=== PATIENT | male | born 1950 | race Hispanic/Latino ===

== ENCOUNTER 2019-09-05 09:57 | Inpatient (IN) | payer MEDICARE ==
[2019-09-05] MEDS ORDERED: ASPIRIN 325 MG TAB PO ONE (10:23)
[2019-09-05] MEDS ORDERED: NITROGLYCERIN 0.4 MG TAB SUBL SL ONE (10:23)
[2019-09-05] MEDS ORDERED: ALBUTEROL 2.5 MG/3 ML NEBU IH ONE ×2 (10:26→23:05)
[2019-09-05] MEDS ORDERED: IPRATROPIUM 0.02% NEBU 2.5 ML IH ONE (10:26)
[2019-09-05 11:10] LABS: Basophils # (Auto) 0.1 K/mm3 (0.0-0.1); Basophils % (Auto) 0.8 % (0.0-1.8); Eosinophils # (Auto) 0.4 K/mm3 (0.0-0.4); Eosinophils % (Auto) 5.8 % (0.0-4.3); Hematocrit 49.9 % (35.5-45.6); Lymphocytes # (Auto) 0.8 K/mm3 (1.2-5.4); Lymphocytes % (Auto) 10.8 % (13.4-35.0); Mean Corpuscular HGB Conc 34 % (32-34); Mean Corpuscular Volume 95 fl (84-94); Monocytes # (Auto) 0.5 K/mm3 (0.0-0.8); Monocytes % (Auto) 6.5 % (0.0-7.3); Platelet Count 142 K/mm3 (140-440); Red Blood Count 5.26 M/mm3 (3.65-5.03); Red Cell Distribution Width 13.3 % (13.2-15.2)
[2019-09-05 11:34] LABS: BUN/Creatinine Ratio 7; Blood Urea Nitrogen 7 mg/dL (9-20); Calcium 9.1 mg/dL (8.4-10.2); Hemolysis Index 11
[2019-09-05] MEDS ORDERED: FUROSEMIDE 40 MG/4 ML INJ IV ONE (11:41)
[2019-09-05 11:52] LABS: INR 1.07 (0.87-1.13); Partial Thromboplastin Time 31.9 Sec. (24.2-36.6)
[2019-09-05 12:06] LABS: Chol/HDL Ratio 4.67 %; HDL Cholesterol 37 mg/dL (40-59); LDL Cholesterol,Direct 128 mg/dL (50-130)
--- NOTE | 2019-09-05 12:25 | XRay Report ---
. CHEST 2 VIEWS INDICATION / CLINICAL INFORMATION: chest pain. COMPARISON: None available. FINDINGS: SUPPORT DEVICES: None. HEART / MEDIASTINUM: No significant abnormality. LUNGS / PLEURA: There are increased basilar interstitial markings and small effusions. Appearance sug gests early heart failure. No focal alveolar consolidation. No pneumothorax. ADDITIONAL FINDINGS: No significant additional findings. IMPRESSION: 1. Possible early heart failure. Signer Name: Tj Main MD Signed: 09/05/2019 12:21 PM Workstation Name: [id number]
[2019-09-05] MEDS ORDERED: ACETAMINOPHEN 325 MG TAB PO PRN (12:38)
[2019-09-05] MEDS ORDERED: ONDANSETRON 4 MG/2 ML INJ IV PRN (12:38)
[2019-09-05] MEDS ORDERED: HYDROXYZINE HCL 50 MG PO PRN (12:42)
--- NOTE | 2019-09-05 12:42 | Emergency Department Report ---
ED Chest Pain HPI - General Chief Complaint: Chest Pain Stated Complaint: CHEST PAIN Time Seen by Provider: 09/05/19 10:20 Source: patient, EMS Mode of arrival: Stretcher Limitations: No Limitations - History of Present Illness Initial Comments: Patient is a 69-year-old male with no known past medical history per patient who states he has been having chest pain since last night. Patient states that pain as a pressure-like sensation in the center chest. Associated with shortness of breath. Patient states pain is worse with exertion and better with rest. Patient denies fevers chills. He has a mild nonproductive cough. Severity scale (0 -10): 7 - Related Data Home Medications Medication Instructions Recorded Confirmed Last Taken Gabapentin [Neurontin] 400 mg PO QID 09/05/19 09/05/19 Unknown Hydroxyzine HCl [hydrOXYzine] 50 mg PO QID PRN 09/05/19 09/05/19 Unknown tiZANidine [Zanaflex 4mg TAB] 8 mg PO Q8H 09/05/19 09/05/19 Unknown Allergies Allergy/AdvReac Type Severity Reaction Status Date / Time acetaminophen [From Percocet] AdvReac Vomiting Verified 09/05/19 10:18 oxycodone [From Percocet] AdvReac Vomiting Verified 09/05/19 10:18 Heart Score - HEART Score History: Highly suspicious EKG: Non-specific Age: > 65 Risk factors: No known risk factors Troponin: 1-3x normal limit HEART Score: 6 ED Review of Systems ROS: Stated complaint: CHEST PAIN Other details as noted in HPI Comment: All other systems reviewed and negative ED Past Medical Hx - Past Medical History Previous Medical History?: No - Surgical History Past Surgical History?: Yes Additional Surgical History: neck surgery - Social History Smoking Status: Current Every Day Smoker - Medications Home Medications: Home Medications Medication Instructions Recorded Confirmed Last Taken Type Gabapentin [Neurontin] 400 mg PO QID 09/05/19 09/05/19 Unknown History Hydroxyzine HCl [hydrOXYzine] 50 mg PO QID PRN 09/05/19 09/05/19 Unknown History tiZANidine [Zanaflex 4mg TAB] 8 mg PO Q8H 09/05/19 09/05/19 Unknown History ED Physical Exam - General Limitations: No Limitations General appearance: alert, in no apparent distress - Head Head exam: Present: atraumatic, normocephalic - Eye Eye exam: Present: normal appearance, PERRL, EOMI - ENT ENT exam: Present: mucous membranes moist - Neck Neck exam: Present: normal inspection - Respiratory Respiratory exam: Present: normal lung sounds bilaterally, wheezes. Absent: respiratory distress, rales, rhonchi - Cardiovascular Cardiovascular Exam: Present: regular rate, normal rhythm, normal heart sounds. Absent: systolic murmur, diastolic murmur, rubs, gallop - GI/Abdominal GI/Abdominal exam: Present: soft, normal bowel sounds. Absent: distended, tenderness, guarding, rebound - Rectal Rectal exam: Present: deferred - Extremities Exam Extremities exam: Present: normal inspection - Back Exam Back exam: Present: normal inspection - Neurological Exam Neurological exam: Present: alert, oriented X3 - Psychiatric Psychiatric exam: Present: normal affect, normal mood - Skin Skin exam: Present: warm, dry, intact, normal color. Absent: rash ED Course Vital Signs 09/05/19 10:48 Temperature 98.7 F Pulse Rate 90 Respiratory 22 Rate Blood Pressure 128/87 [Left] O2 Sat by Pulse 93 Oximetry ED Medical Decision Making - Lab Data Result diagrams: 09/05/19 10:52 09/05/19 10:52 Lab Results 09/05/19 09/05/19 09/05/19 Range/Units 10:52 10:52 10:52 WBC 7.6 (4.5-11.0) K/mm3 RBC 5.26 H (3.65-5.03) M/mm3 Hgb 17.0 H (11.8-15.2) gm/dl Hct 49.9 H (35.5-45.6) % MCV 95 H (84-94) fl MCH 32 (28-32) pg MCHC 34 (32-34) % RDW 13.3 (13.2-15.2) % Plt Count 142 (140-440) K/mm3 Lymph % (Auto) 10.8 L (13.4-35.0) % [place] % (Auto) 6.5 (0.0-7.3) % Eos % (Auto) 5.8 H (0.0-4.3) % Baso % (Auto) 0.8 (0.0-1.8) % Lymph # 0.8 L (1.2-5.4) K/mm3 [place] # 0.5 (0.0-0.8) K/mm3 Eos # 0.4 (0.0-0.4) K/mm3 Baso # 0.1 (0.0-0.1) K/mm3 Seg Neutrophils % 76.1 H (40.0-70.0) % Seg Neutrophils # 5.8 (1.8-7.7) K/mm3 PT 13.8 (12.2-14.9) Sec. INR 1.07 (0.87-1.13) APTT 31.9 (24.2-36.6) Sec. D-Dimer 1584.56 H (0-234) ng/mlDDU Sodium 142 (137-145) mmol/L Potassium 3.6 (3.6-5.0) mmol/L Chloride 105.9 (98-107) mmol/L Carbon Dioxide 21 L (22-30) mmol/L Anion Gap 19 mmol/L BUN 7 L (9-20) mg/dL Creatinine 1.0 (0.8-1.5) mg/dL Estimated GFR > 60 ml/min BUN/Creatinine Ratio 7 % Glucose 160 H (75-100) mg/dL Calcium 9.1 (8.4-10.2) mg/dL Troponin T 0.341 H* (0.00-0.029) ng/mL NT-Pro-B Natriuret Pep (0-900) pg/mL Triglycerides 95 (2-149) mg/dL Cholesterol 173 (50-199) mg/dL LDL Cholesterol Direct 128 (50-130) mg/dL HDL Cholesterol 37 L (40-59) mg/dL Cholesterol/HDL Ratio 4.67 % 09/05/19 Range/Units 10:52 WBC (4.5-11.0) K/mm3 RBC (3.65-5.03) M/mm3 Hgb (11.8-15.2) gm/dl Hct (35.5-45.6) % MCV (84-94) fl MCH (28-32) pg MCHC (32-34) % RDW (13.2-15.2) % Plt Count (140-440) K/mm3 Lymph % (Auto) (13.4-35.0) % [place] % (Auto) (0.0-7.3) % Eos % (Auto) (0.0-4.3) % Baso % (Auto) (0.0-1.8) % Lymph # (1.2-5.4) K/mm3 [place] # (0.0-0.8) K/mm3 Eos # (0.0-0.4) K/mm3 Baso # (0.0-0.1) K/mm3 Seg Neutrophils % (40.0-70.0) % Seg Neutrophils # (1.8-7.7) K/mm3 PT (12.2-14.9) Sec. INR (0.87-1.13) APTT (24.2-36.6) Sec. D-Dimer (0-234) ng/mlDDU Sodium (137-145) mmol/L Potassium (3.6-5.0) mmol/L Chloride (98-107) mmol/L Carbon Dioxide (22-30) mmol/L Anion Gap mmol/L BUN (9-20) mg/dL Creatinine (0.8-1.5) mg/dL Estimated GFR ml/min BUN/Creatinine Ratio % Glucose (75-100) mg/dL Calcium (8.4-10.2) mg/dL Troponin T (0.00-0.029) ng/mL NT-Pro-B Natriuret Pep 3804 H (0-900) pg/mL Triglycerides (2-149) mg/dL Cholesterol (50-199) mg/dL LDL Cholesterol Direct (50-130) mg/dL HDL Cholesterol (40-59) mg/dL Cholesterol/HDL Ratio % - EKG Data -: EKG Interpreted by La - EKG Data 09/05/19 12:40 EKG shows sinus rhythm a rate of 97. Axes normal intervals normal. Patient with Q waves in the septal leads. No ST segment elevation or depressions. There are occasional PVCs. - Radiology Data Chest x-ray shows cardiomegaly with mild pulmonary vascular congestion consistent with early congestive heart failure - Medical Decision Making Patient 69-year-old male who is presenting with chest pain with exertion and shortness of breath. Patient presented with a mild wheezes started on a neb treatment however patient's BNP was elevated there appears to be pulmonary vascular congestion on chest x-ray more consistent with a CHF exacerbation. No wheezing did improve with the neb treatment. Lasix was added. Patient to be admitted to the hospitalist service. Patient will be started on a heparin drip. Critical Care Time: Yes (30) Critical care attestation.: If time is entered above; I have spent that time in minutes in the direct care of this critically ill patient, excluding procedure time. ED Disposition Clinical Impression: NSTEMI (non-ST elevated myocardial infarction), Respiratory distress Congestive heart failure Qualifiers: Heart failure type: unspecified Heart failure chronicity: acute Qualified Code(s): I50.9 - Heart failure, unspecified Disposition: OP ADMIT IP TO THIS HOSP Is pt being admited?: Yes Does the pt Need Aspirin: No Condition: Stable Time of Disposition: 12:43
[2019-09-05] MEDS ORDERED: ASPIRIN 81 MG TAB CHEW PO STA (12:43)
--- NOTE | 2019-09-05 15:10 | Consultation ---
History of Present Illness Consult date: 09/05/19 Consult reason: chest pain, elevated troponin History of present illness: This is a 69-year old male that has smoke tobacco but has no prior medical history and does not take any medications. He presented with chest pain, intermittent for several days. Patient denies unusual shortness of breath, diaphoresis, dizziness and palpitations.There is no lower extremity edema and there was no syncope. Patient reports chest pain with no relieving factors. A chest x-ray reports increase basilar interstitial markings suggestive of mild heart failure. Initial labs shows an elevated d-dimer and a proBNP of 3804. Troponin of 0.341. His ECG is sinus rhythm with PACs and occasional PVCs. Patient was admitted by the hospitalist team is a planned for a stress thallium test and echocardiogram. Cardiology consultation has been requested. Past History Past Medical History: No medical history Medications and Allergies Allergies Allergy/AdvReac Type Severity Reaction Status Date / Time acetaminophen [From Percocet] AdvReac Vomiting Verified 09/05/19 10:18 oxycodone [From Percocet] AdvReac Vomiting Verified 09/05/19 10:18 Home Medications Medication Instructions Recorded Confirmed Last Taken Type Gabapentin [Neurontin] 400 mg PO QID 09/05/19 09/05/19 Unknown History Hydroxyzine HCl [hydrOXYzine] 50 mg PO QID PRN 09/05/19 09/05/19 Unknown History tiZANidine [Zanaflex 4mg TAB] 8 mg PO Q8H 09/05/19 09/05/19 Unknown History Active Meds: Active Medications Acetaminophen (Tylenol) 650 mg PO Q4H PRN PRN Reason: Pain MILD(1-3)/Fever >100.5/LUJAN Enoxaparin Sodium (Enoxaparin) 80 mg 1 mg/kg (80 mg) SUB-Q Q12HR WESTLEY Gabapentin (Gabapentin) 400 mg PO QID WEST[place] Hydroxyzine HCl (Atarax) 50 mg PO Q6H PRN PRN Reason: Anxiety Ondansetron HCl (Zofran) 4 mg IV Q8H PRN PRN Reason: Nausea And Vomiting Sodium Chloride (Sodium Chloride Flush Syringe 10 Ml) 10 ml IV BID [place]STLEY Sodium Chloride (Sodium Chloride Flush Syringe 10 Ml) 10 ml IV PRN PRN PRN Reason: LINE FLUSH Sodium Chloride (Sodium Chloride Flush Syringe 10 Ml) 10 ml IV PRN PRN PRN Reason: LINE FLUSH Physical Examination Vital Signs Temp Pulse Resp BP Pulse Ox 98.7 F 90 22 128/87 93 09/05/19 10:48 09/05/19 10:48 09/05/19 10:48 09/05/19 10:48 09/05/19 10:48 General appearance: no acute distress HEENT: Positive: PERRL Neck: Positive: trachea midline Cardiac: Positive: Reg Rate and Rhythm Lungs: Positive: Normal Breath Sounds Neuro: Positive: Grossly Intact Extremities: Absent: edema Results 09/05/19 10:52 09/05/19 10:52 Coagulation 09/05/19 Range/Units 10:52 PT 13.8 (12.2-14.9) Sec. INR 1.07 (0.87-1.13) APTT 31.9 (24.2-36.6) Sec. Lipids 09/05/19 Range/Units 10:52 Triglycerides 95 (2-149) mg/dL Cholesterol 173 (50-199) mg/dL HDL Cholesterol 37 L (40-59) mg/dL Cholesterol/HDL Ratio 4.67 % CBC 09/05/19 Range/Units 10:52 WBC 7.6 (4.5-11.0) K/mm3 RBC 5.26 H (3.65-5.03) M/mm3 Hgb 17.0 H (11.8-15.2) gm/dl Hct 49.9 H (35.5-45.6) % Plt Count 142 (140-440) K/mm3 Lymph # 0.8 L (1.2-5.4) K/mm3 [place] # 0.5 (0.0-0.8) K/mm3 Eos # 0.4 (0.0-0.4) K/mm3 Baso # 0.1 (0.0-0.1) K/mm3 Comprehensive Metabolic Panel 09/05/19 Range/Units 10:52 Sodium 142 (137-145) mmol/L Potassium 3.6 (3.6-5.0) mmol/L Chloride 105.9 (98-107) mmol/L Carbon Dioxide 21 L (22-30) mmol/L BUN 7 L (9-20) mg/dL Creatinine 1.0 (0.8-1.5) mg/dL Glucose 160 H (75-100) mg/dL Calcium 9.1 (8.4-10.2) mg/dL Assessment and Plan - Patient Problems (1) NSTEMI (non-ST elevated myocardial infarction) Current Visit: Yes Status: Acute
--- NOTE | 2019-09-05 15:44 | History and Physical Report ---
History of Present Illness Date of admission: 09/05/19 12:38 Chief complaint: My chest hurts History of present illness: 69 YO Male with Nicotine Dependence presents to ED for evaluation. Pt states that he has experienced pain in his chest over the past 5 days with worsening symptoms over the past 2 days. Pt states that pain is 7/10, substernal, intermittent with increasing frequency over the past 2 days, radiates to the left arm, associated with shortness of breath. Pt acknowledges decreased exercise tolerance, dypsnea on exertion, dypsnea at rest. EMS notified, and upon arrival the patient was found to be in distress. Pt transported to [facility]. Pt seen and evaluated in ED and found to have NSTEMI as well as CHF Decompensation. Pt admitted to telemetry. Cardiology consulted in ED. Pt initiated on NSTEMI protocol, as well as therapeutic anticoagulation. Pt denies fever, chills, palpi tations, NVD, Trauma, Hemoptysis, unilateral leg swelling, calf pain, syncope, productive cough or recent ill contacts. No prior admission for review. No medication listed for reconciliation at time of admission. Past History Past Medical History: No medical history Past Surgical History: Other (neck surgery) Social history: , lives with family, smoking Family history: no significant family history (reviewed) Medications and Allergies Allergies Allergy/AdvReac Type Severity Reaction Status Date / Time acetaminophen [From Percocet] AdvReac Vomiting Verified 09/05/19 10:18 oxycodone [From Percocet] AdvReac Vomiting Verified 09/05/19 10:18 Home Medications Medication Instructions Recorded Confirmed Last Taken Type Gabapentin [Neurontin] 400 mg PO QID 09/05/19 09/05/19 Unknown History Hydroxyzine HCl [hydrOXYzine] 50 mg PO QID PRN 09/05/19 09/05/19 Unknown History tiZANidine [Zanaflex 4mg TAB] 8 mg PO Q8H 09/05/19 09/05/19 Unknown History Active Meds: Active Medications Acetaminophen (Tylenol) 650 mg PO Q4H PRN PRN Reason: Pain MILD(1-3)/Fever >100.5/LUJAN Enoxaparin Sodium (Enoxaparin) 80 mg 1 mg/kg (80 mg) SUB-Q Q12HR [place] Gabapentin (Gabapentin) 400 mg PO QID [place] Hydroxyzine HCl (Atarax) 50 mg PO Q6H PRN PRN Reason: Anxiety Ondansetron HCl (Zofran) 4 mg IV Q8H PRN PRN Reason: Nausea And Vomiting Sodium Chloride (Sodium Chloride Flush Syringe 10 Ml) 10 ml IV BID [place]ST[place] Sodium Chloride (Sodium Chloride Flush Syringe 10 Ml) 10 ml IV PRN PRN PRN Reason: LINE FLUSH Sodium Chloride (Sodium Chloride Flush Syringe 10 Ml) 10 ml IV PRN PRN PRN Reason: LINE FLUSH Review of Systems Constitutional: no weight loss, no weight gain, no fever, no chills Ears, nose, mouth and throat: no ear pain, no ear discharge, no tinnitis, no decreased hearing Cardiovascular: chest pain, shortness of breath, dyspnea on exertion, decreased exercise tolerance, no palpitations, no syncope, no lightheadedness Respiratory: no cough, no cough with sputum, no excessive sputum, no hemoptysis Gastrointestinal: no nausea, no vomiting, no diarrhea, no change in bowel habits Genitourinary Male: no hematuria, no flank pain, no discharge, no urinary frequency, no urinary hesitancy Rectal: no pain, no incontinence, no bleeding Musculoskeletal: no neck stiffness, no neck pain, no shooting arm pain, no arm numbness/tingling, no low back pain, no leg numbness/tingling Integumentary: no rash, no pruritis, no redness, no sores, no wounds Neurological: no paralysis, no weakness, no parathesias, no numbness, no tingling, no seizures Psychiatric: no anxiety, no memory loss, no change in sleep habits, no sleep disturbances, no insomnia, no hypersomnia, no change in libido, no suicidal ideation Endocrine: no cold intolerance, no heat intolerance, no polyphagia, no excessive thirst, no polydipsia, no polyuria, no nocturia, no flushing, no weight change Hematologic/Lymphatic: no easy bruising, no easy bleeding, no lymphadenopathy, no lymphedema Allergic/Immunologic: no urticaria, no allergic rhinitis, no wheezing, no persistent infections, no anaphylaxis, no angioedema Exam - Constitutional Vitals: Temp Pulse Resp BP Pulse Ox 98.7 F 103 H 17 136/82 88 09/05/19 10:48 09/05/19 13:00 09/05/19 13:00 09/05/19 13:00 09/05/19 13:00 General appearance: Present: mild distress, well-nourished - EENT Eyes: Present: PERRL ENT: hearing intact, clear oral mucosa - Neck Neck: Present: supple, normal ROM - Respiratory Respiratory effort: normal Respiratory: bilateral: CTA - Cardiovascular Heart Sounds: Present: S1 & S2. Absent: rub, click - Extremities Extremities: pulses symmetrical, No edema Peripheral Pulses: within normal limits - Abdominal General gastrointestinal: Present: soft, non-tender, non-distended, normal bowel sounds Male genitourinary: Present: normal - Integumentary Integumentary: Present: clear, warm, dry - Musculoskeletal Musculoskeletal: strength equal bilaterally - Psychiatric Psychiatric: appropriate mood/affect, intact judgment & insight - Neurologic Neurologic: CNII-XII intact, moves all extremities Results - Labs CBC & Chem 7: 09/05/19 10:52 09/05/19 10:52 Labs: Abnormal lab results 09/05/19 09/05/19 09/05/19 Range/Units 10:52 10:52 10:52 RBC 5.26 H (3.65-5.03) M/mm3 Hgb 17.0 H (11.8-15.2) gm/dl Hct 49.9 H (35.5-45.6) % MCV 95 H (84-94) fl Lymph % (Auto) 10.8 L (13.4-35.0) % Eos % (Auto) 5.8 H (0.0-4.3) % Lymph # 0.8 L (1.2-5.4) K/mm3 Seg Neutrophils % 76.1 H (40.0-70.0) % D-Dimer 1584.56 H (0-234) ng/mlDDU Carbon Dioxide 21 L (22-30) mmol/L BUN 7 L (9-20) mg/dL Glucose 160 H (75-100) mg/dL Troponin T 0.341 H* (0.00-0.029) ng/mL NT-Pro-B Natriuret Pep (0-900) pg/mL HDL Cholesterol 37 L (40-59) mg/dL 09/05/19 09/05/19 09/05/19 Range/Units 10:52 13:50 14:32 RBC (3.65-5.03) M/mm3 Hgb (11.8-15.2) gm/dl Hct (35.5-45.6) % MCV (84-94) fl Lymph % (Auto) (13.4-35.0) % Eos % (Auto) (0.0-4.3) % Lymph # (1.2-5.4) K/mm3 Seg Neutrophils % (40.0-70.0) % D-Dimer (0-234) ng/mlDDU Carbon Dioxide (22-30) mmol/L BUN (9-20) mg/dL Glucose (75-100) mg/dL Troponin T 0.314 H* 0.305 H* (0.00-0.029) ng/mL NT-Pro-B Natriuret Pep 3804 H (0-900) pg/mL HDL Cholesterol (40-59) mg/dL Assessment and Plan - Patient Problems (1) NSTEMI (non-ST elevated myocardial infarction) Current Visit: Yes Status: Acute Plan to address problem: Admit to telemetry, cardiology consulted in ED, Therapeutic anticoagulation, serial cardiac enzymes, pulse oximetry, stress test, echo, further testing as per cardiology team. (2) Congestive heart failure Current Visit: Yes Status: Acute Qualifiers: Heart failure type: combined systolic and diastolic Heart failure chronicity: acute Qualified Code(s): I50.41 - Acute combined systolic (congestive) and diastolic (congestive) heart failure Plan to address problem: Admit to telemetry, Strict I/O, BNP, thyroid panel, monitor uop q shift, chest x ray, pulse oximetry, afterload reduction, echo, cardiology consulted in ED. (3) Nicotine dependence Current Visit: Yes Status: Acute Qualifiers: Substance use status: in withdrawal Plan to address problem: Smoking cessation counseling, supportive care. +15 min (4) DVT prophylaxis Current Visit: Yes Status: Acute Plan to address problem: SCD to BLE while in bed, therapeutic anticoagulation
[2019-09-05] MEDS: FUROSEMIDE 40 MG/4 ML INJ IV SCH (17:15)
[2019-09-05] MEDS: GABAPENTIN 400 MG CAP PO SCH ×4 (17:16→22:02)
[2019-09-05] MEDS: NITROGLYCERIN 2% OINT 1 GM TP SCH (17:16)
[2019-09-05] MEDS ORDERED: HYDROcodone/ACETAMINOPHEN 7.5-325MG TAB PO PRN (17:29)
[2019-09-05] MEDS ORDERED: ENOXAPARIN 100 MG/1 ML INJ SUB-Q SCH (22:00)
[2019-09-05] MEDS: hydrOXYzine HCL 25 MG TAB PO PRN (22:03)
[2019-09-06] MEDS: NITROGLYCERIN 2% OINT 1 GM TP SCH ×3 (07:40→18:28)
[2019-09-06 07:57] LABS: Basophils # (Auto) 0.1 K/mm3 (0.0-0.1); Eosinophils # (Auto) 0.3 K/mm3 (0.0-0.4); Eosinophils % (Auto) 3.6 % (0.0-4.3); Hemoglobin 16.9 gm/dl (11.8-15.2); Lymphocytes # (Auto) 0.8 K/mm3 (1.2-5.4); Lymphocytes % (Auto) 9.7 % (13.4-35.0); Mean Corpuscular HGB Conc 34 % (32-34); Mean Corpuscular Volume 95 fl (84-94); Monocytes # (Auto) 0.7 K/mm3 (0.0-0.8); Monocytes % (Auto) 8.3 % (0.0-7.3); Platelet Count 141 K/mm3 (140-440); Red Blood Count 5.27 M/mm3 (3.65-5.03); Red Cell Distribution Width 13.1 % (13.2-15.2)
[2019-09-06 08:26] LABS: Alanine Aminotransferase 12 units/L (7-56); Albumin 3.9 g/dL (3.9-5); BUN/Creatinine Ratio 9; Blood Urea Nitrogen 8 mg/dL (9-20); Hemolysis Index 31
[2019-09-06] MEDS ORDERED: ENOXAPARIN 80 MG/0.8 ML INJ SUB-Q SCH (10:00)
[2019-09-06] MEDS ORDERED: POTASSIUM CHLORIDE ER 20 MEQ TAB PO SCH (10:00)
--- NOTE | 2019-09-06 10:52 | Progress Note ---
<BRIAN HOOK - Last Filed: 09/06/19 10:47> Subjective Date of service: 09/06/19 Interval history: NSTEMI Congestive heart failure Chronic tobacco abuse Recommendations: Advised smoking cessation. Medical therapy to include diuretics, nitrates, aspirin, beta blockers and statin therapy. Echocardiogram for left ventricular function assessment. We will proceed with diagnostic angiography after heart failure is treated. Objective Vital Signs Temp Pulse Pulse Resp Resp Resp BP 09/06/19 07:56 98.7 F 18 136/95 09/06/19 03:23 98.1 F 100 H 18 140/76 09/06/19 03:00 20 09/05/19 23:39 62 18 09/05/19 22:53 98.2 F 99 H 18 122/86 09/05/19 22:45 98 H 09/05/19 19:19 98.4 F 76 18 145/91 09/05/19 14:38 98.1 F 95 H 18 139/88 09/05/19 13:50 99 H 25 H 137/79 09/05/19 13:40 117 H 26 H 138/76 09/05/19 13:30 107 H 24 143/79 09/05/19 13:20 110 H 14 143/79 09/05/19 13:00 103 H 17 136/82 09/05/19 12:30 100 H 21 144/91 09/05/19 12:10 131/66 09/05/19 11:30 95 H 14 143/77 09/05/19 11:00 92 H 19 128/74 09/05/19 10:48 98.7 F 90 22 BP Pulse Ox 09/06/19 07:56 09/06/19 03:23 94 09/06/19 03:00 09/05/19 23:39 09/05/19 22:53 93 09/05/19 22:45 09/05/19 19:19 94 09/05/19 14:38 96 09/05/19 13:50 95 09/05/19 13:40 84 09/05/19 13:30 90 09/05/19 13:20 88 09/05/19 13:00 88 09/05/19 12:30 91 09/05/19 12:10 90 09/05/19 11:30 97 09/05/19 11:00 94 09/05/19 10:48 128/87 93 - Physical Examination HEENT: Positive: PERRL Neck: Positive: trachea midline Neuro: Positive: Grossly Intact Extremities: Absent: edema - Labs and Meds Cardiac Enzymes 09/06/19 Range/Units 07:05 AST 39 (5-40) units/L Coagulation 09/05/19 Range/Units 10:52 PT 13.8 (12.2-14.9) Sec. INR 1.07 (0.87-1.13) APTT 31.9 (24.2-36.6) Sec. Lipids 09/05/19 Range/Units 10:52 Triglycerides 95 (2-149) mg/dL Cholesterol 173 (50-199) mg/dL HDL Cholesterol 37 L (40-59) mg/dL Cholesterol/HDL Ratio 4.67 % CBC 09/05/19 09/06/19 Range/Units 10:52 07:05 WBC 7.6 8.2 (4.5-11.0) K/mm3 RBC 5.26 H 5.27 H (3.65-5.03) M/mm3 Hgb 17.0 H 16.9 H (11.8-15.2) gm/dl Hct 49.9 H 50.0 H (35.5-45.6) % Plt Count 142 141 (140-440) K/mm3 Lymph # 0.8 L 0.8 L (1.2-5.4) K/mm3 [place] # 0.5 0.7 (0.0-0.8) K/mm3 Eos # 0.4 0.3 (0.0-0.4) K/mm3 Baso # 0.1 0.1 (0.0-0.1) K/mm3 Comprehensive Metabolic Panel 09/05/19 09/06/19 Range/Units 10:52 07:05 Sodium 142 143 (137-145) mmol/L Potassium 3.6 3.6 (3.6-5.0) mmol/L Chloride 105.9 104.0 (98-107) mmol/L Carbon Dioxide 21 L 22 (22-30) mmol/L BUN 7 L 8 L (9-20) mg/dL Creatinine 1.0 0.9 (0.8-1.5) mg/dL Glucose 160 H 120 H (75-100) mg/dL Calcium 9.1 9.0 (8.4-10.2) mg/dL AST 39 (5-40) units/L ALT 12 (7-56) units/L Alkaline Phosphatase 81 (35-129) units/L Total Protein 6.9 (6.3-8.2) g/dL Albumin 3.9 (3.9-5) g/dL <ALICIA VIDAL - Last Filed: 09/06/19 12:06> Assessment and Plan As seen and evaluated the patient and agree with the assessment and plan. The patient presented to the hospital with non-ST elevation myocardial infarction, chest pain, and congestive heart failure. At this time continue medical therapy with beta flores, aspirin, statin, and THERON inhibitor. Plan for left heart catheterization tomorrow. Objective Vital Signs Temp Pulse Pulse Resp Resp Resp BP 09/06/19 07:56 98.7 F 18 136/95 09/06/19 03:23 98.1 F 100 H 18 140/76 09/06/19 03:00 20 09/05/19 23:39 62 18 09/05/19 22:53 98.2 F 99 H 18 122/86 09/05/19 22:45 98 H 09/05/19 19:19 98.4 F 76 18 145/91 09/05/19 14:38 98.1 F 95 H 18 139/88 09/05/19 13:50 99 H 25 H 137/79 09/05/19 13:40 117 H 26 H 138/76 09/05/19 13:30 107 H 24 143/79 09/05/19 13:20 110 H 14 143/79 09/05/19 13:00 103 H 17 136/82 09/05/19 12:30 100 H 21 144/91 09/05/19 12:10 131/66 Pulse Ox 09/06/19 07:56 09/06/19 03:23 94 09/06/19 03:00 09/05/19 23:39 09/05/19 22:53 93 09/05/19 22:45 09/05/19 19:19 94 09/05/19 14:38 96 09/05/19 13:50 95 09/05/19 13:40 84 09/05/19 13:30 90 09/05/19 13:20 88 09/05/19 13:00 88 09/05/19 12:30 91 09/05/19 12:10 90 - Labs and Meds Cardiac Enzymes 09/06/19 Range/Units 07:05 AST 39 (5-40) units/L Lipids 09/05/19 Range/Units 10:52 Triglycerides 95 (2-149) mg/dL Cholesterol 173 (50-199) mg/dL HDL Cholesterol 37 L (40-59) mg/dL Cholesterol/HDL Ratio 4.67 % CBC 09/06/19 Range/Units 07:05 WBC 8.2 (4.5-11.0) K/mm3 RBC 5.27 H (3.65-5.03) M/mm3 Hgb 16.9 H (11.8-15.2) gm/dl Hct 50.0 H (35.5-45.6) % Plt Count 141 (140-440) K/mm3 Lymph # 0.8 L (1.2-5.4) K/mm3 [place] # 0.7 (0.0-0.8) K/mm3 Eos # 0.3 (0.0-0.4) K/mm3 Baso # 0.1 (0.0-0.1) K/mm3 Comprehensive Metabolic Panel 09/06/19 Range/Units 07:05 Sodium 143 (137-145) mmol/L Potassium 3.6 (3.6-5.0) mmol/L Chloride 104.0 (98-107) mmol/L Carbon Dioxide 22 (22-30) mmol/L BUN 8 L (9-20) mg/dL Creatinine 0.9 (0.8-1.5) mg/dL Glucose 120 H (75-100) mg/dL Calcium 9.0 (8.4-10.2) mg/dL AST 39 (5-40) units/L ALT 12 (7-56) units/L Alkaline Phosphatase 81 (35-129) units/L Total Protein 6.9 (6.3-8.2) g/dL Albumin 3.9 (3.9-5) g/dL
[2019-09-06] MEDS ORDERED: HEPARIN/ 0.45% NACL DRIP 25,000 UNIT/500 ML BAG IV SCH (12:00)
--- NOTE | 2019-09-06 12:20 | Progress Note ---
Assessment and Plan Assessment and plan: 69-year-old manWith no previous medical history who presents to the hospital with chest pain. Which was associated with shortness of breath, increased abdominal girth, and orthopnea NSTEMI elevated d dimer, and peak trop 0.5, need to r/o PE, obtain CTA and LE duplex need to treat CHF and reduce fluid overload before cath -Currently on heparin drip, management per cardiology. acute systolic CHF EF 25% optimize meds, cont diuretics for cath when euvolemic, Tobacco abuse/dependence Smoking cessation counseling performed for 10 minutes, nicotine patches when necessary Polycythemia Most likely due to tobacco abuse, hematology consult DVT prophylaxis; patient is fully anticoagulated at the moment. History Interval history: Review of systems Constitutional: No fevers, no malaise, no joint pains CVS: Cp has now resolved, c/o orthopnea GI: No abdominal pain, no diarrhea, no vomiting, no constipation Respiratory: no wheezing, no coughing Hospitalist Physical - Physical exam Narrative exam: General.: Appears well, no distress, nontoxic HEENT: Moist mucous membranes, extraocular muscles intact, no lymphadenopathy Neck: supple Cardiac: S1-S2 heard Lungs: Bibasilar crackles Abdomen: soft , nontender, mildy distended, bowel sounds positive Extremities: no edema clubbing or cyanosis Skin: no rash or lesions Neurologic: no gross focal deficits Psych: calm, and cooperative - Constitutional Vitals: Temp Pulse Resp BP Pulse Ox 98.8 F 69 17 122/89 73 L 09/06/19 11:29 09/06/19 11:29 09/06/19 11:29 09/06/19 11:29 09/06/19 11:29 General appearance: Present: mild distress, well-nourished Results - Labs CBC & Chem 7: 09/06/19 13:51 09/06/19 07:05 Labs: Laboratory Last Values WBC 8.2 K/mm3 (4.5-11.0) 09/06/19 07:05 RBC 5.27 M/mm3 (3.65-5.03) H 09/06/19 07:05 Hgb 16.9 gm/dl (11.8-15.2) H 09/06/19 07:05 Hct 50.0 % (35.5-45.6) H 09/06/19 07:05 MCV 95 fl (84-94) H 09/06/19 07:05 MCH 32 pg (28-32) 09/06/19 07:05 MCHC 34 % (32-34) 09/06/19 07:05 RDW 13.1 % (13.2-15.2) L 09/06/19 07:05 Plt Count 141 K/mm3 (140-440) 09/06/19 07:05 Lymph % (Auto) 9.7 % (13.4-35.0) L 09/06/19 07:05 [place] % (Auto) 8.3 % (0.0-7.3) H 09/06/19 07:05 Eos % (Auto) 3.6 % (0.0-4.3) 09/06/19 07:05 Baso % (Auto) 1.0 % (0.0-1.8) 09/06/19 07:05 Lymph # 0.8 K/mm3 (1.2-5.4) L 09/06/19 07:05 [place] # 0.7 K/mm3 (0.0-0.8) 09/06/19 07:05 Eos # 0.3 K/mm3 (0.0-0.4) 09/06/19 07:05 Baso # 0.1 K/mm3 (0.0-0.1) 09/06/19 07:05 Seg Neutrophils % 77.4 % (40.0-70.0) H 09/06/19 07:05 Seg Neutrophils # 6.4 K/mm3 (1.8-7.7) 09/06/19 07:05 PT 13.8 Sec. (12.2-14.9) 09/05/19 10:52 INR 1.07 (0.87-1.13) 09/05/19 10:52 APTT 31.9 Sec. (24.2-36.6) 09/05/19 10:52 D-Dimer 1584.56 ng/mlDDU (0-234) H 09/05/19 10:52 Sodium 143 mmol/L (137-145) 09/06/19 07:05 Potassium 3.6 mmol/L (3.6-5.0) 09/06/19 07:05 Chloride 104.0 mmol/L (98-107) 09/06/19 07:05 Carbon Dioxide 22 mmol/L (22-30) 09/06/19 07:05 Anion Gap 21 mmol/L 09/06/19 07:05 BUN 8 mg/dL (9-20) L 09/06/19 07:05 Creatinine 0.9 mg/dL (0.8-1.5) 09/06/19 07:05 Estimated GFR > 60 ml/min 09/06/19 07:05 BUN/Creatinine Ratio 9 % 09/06/19 07:05 Glucose 120 mg/dL (75-100) H 09/06/19 07:05 POC Glucose 108 (70-105) H 09/05/19 20:39 Calcium 9.0 mg/dL (8.4-10.2) 09/06/19 07:05 Total Bilirubin 1.40 mg/dL (0.1-1.2) H 09/06/19 07:05 AST 39 units/L (5-40) 09/06/19 07:05 ALT 12 units/L (7-56) 09/06/19 07:05 Alkaline Phosphatase 81 units/L (35-129) 09/06/19 07:05 Troponin T 0.647 ng/mL (0.00-0.029) H* D 09/05/19 23:52 NT-Pro-B Natriuret Pep 3804 pg/mL (0-900) H 09/05/19 10:52 Total Protein 6.9 g/dL (6.3-8.2) 09/06/19 07:05 Albumin 3.9 g/dL (3.9-5) 09/06/19 07:05 Albumin/Globulin Ratio 1.3 % 09/06/19 07:05 Triglycerides 95 mg/dL (2-149) 09/05/19 10:52 Cholesterol 173 mg/dL (50-199) 09/05/19 10:52 LDL Cholesterol Direct 128 mg/dL (50-130) 09/05/19 10:52 HDL Cholesterol 37 mg/dL (40-59) L 09/05/19 10:52 Cholesterol/HDL Ratio 4.67 % 09/05/19 10:52 Active Medications - Current Medications Current Medications: Generic Name Dose Route Start Last Admin Trade Name Freq PRN Reason Stop Dose Admin Acetaminophen 650 mg 09/05/19 12:38 Tylenol PO Q4H PRN Pain MILD(1-3)/Fever >100.5/LUJAN Acetaminophen/Hydrocodone Bitart 1 each 09/05/19 17:29 09/05/19 19:28 [place] 7.5/325 PO 1 each Q4H PRN Administration Pain, Moderate (4-6) Aspirin 325 mg 09/06/19 10:00 Aspirin PO QDAY WEST[place] Atorvastatin Calcium 40 mg 09/06/19 22:00 Lipitor PO QHS [facility] Furosemide 40 mg 09/05/19 18:00 09/05/19 17:15 Lasix IV 40 mg 0600,1800 WESTLEY Administration Gabapentin 400 mg 09/05/19 14:00 09/05/19 22:02 Gabapentin PO 400 mg QID [place] Administration Hydroxyzine HCl 50 mg 09/05/19 12:49 09/05/19 22:03 Atarax PO 50 mg Q6H PRN Administration Anxiety Heparin Sodium/Sodium Chloride 25,000 unit in 500 mls @ 20 mls/hr 09/06/19 12:00 Heparin/ 0.45% Nacl-25,000 Unit/500 Ml IV TITRATE [facility] Protocol 1,000 UNITS/HR Metoprolol Succinate 25 mg 09/06/19 12:00 Metoprolol Xl PO QDAY [facility] Nitroglycerin 1 inch 09/05/19 18:00 09/06/19 07:40 Nitro-Bid 2% TP Not Given QIDNTG [facility] Protocol Ondansetron HCl 4 mg 09/05/19 12:38 Zofran IV Q8H PRN Nausea And Vomiting Potassium Chloride 20 meq 09/06/19 10:00 K-Dur PO QDAY [place] Sodium Chloride 10 ml 09/05/19 22:00 09/05/19 22:00 Sodium Chloride Flush Syringe 10 Ml IV 10 ml BID [place] Administration Sodium Chloride 10 ml 09/05/19 12:38 Sodium Chloride Flush Syringe 10 Ml IV PRN PRN LINE FLUSH
[2019-09-06 14:12] LABS: Hematocrit 49.2 % (35.5-45.6); Hemoglobin 16.9 gm/dl (11.8-15.2)
[2019-09-06 14:21] LABS: INR 1.1 (0.87-1.13)
[2019-09-06 14:22] LABS: Partial Thromboplastin Time 35.7 Sec. (24.2-36.6)
[2019-09-06] MEDS: NICOTINE 14 MG/24 HR PATCH TD SCH (14:35)
[2019-09-06] MEDS: METOPROLOL SUCCINATE XL 25 MG TAB PO SCH (14:43)
[2019-09-06] MEDS: GABAPENTIN 400 MG CAP PO SCH ×3 (14:43→21:45)
[2019-09-06] MEDS: ASPIRIN 325 MG TAB PO SCH (14:44)
--- NOTE | 2019-09-06 16:37 | Event Note ---
CT angiogram which was ordered stat at 1230 still not done. Discussed with Robert the charge nurse. States that the patient needs a larger bore IV line to get the test. The patient is currently on heparin drip. Charge nurse to facilitate the patient getting the line so he can get the CT angiogram urgently.
--- NOTE | 2019-09-06 17:00 | Vascular Lab Report ---
DUPLEX DOPPLER LOWER EXTREMITY VEINS, BILATERAL INDICATION: Shortness of breath. TECHNIQUE: Duplex doppler imaging was performed through the veins of both lower extremities using venous lamine mehran and other maneuvers. COMPARISON: None available. FINDINGS: Right Common femoral vein: Negative. Right Superficial femoral vein: Negative. Right Popliteal vein: Negative. Right Calf veins: Negative. Left Common femoral vein: Negative. Left Superficial femoral vein: Negative. Left Popliteal vein: Negative. Left Calf veins: Negative. Additional findings: There is no evidence of a popliteal cyst or other abnormality. IMPRESSION: No sonographic evidence for DVT in either lower extremity. Signer Name: Abel Matthew MD Signed: 09/06/2019 4:55 PM Workstation Name: [id number]
[2019-09-06] MEDS: FUROSEMIDE 40 MG/4 ML INJ IV SCH (18:21)
--- NOTE | 2019-09-06 19:57 | Cat Scan Report ---
CTA CHEST WITH IV CONTRAST INDICATION / CLINICAL INFORMATION: MAIN: sob WITH CHEST PAIN - 100ML OMNI 350. TECHNIQUE: Axial CT images were obtained through the chest after injection of 100ML OMNI 350 milligrams percent IV contrast. 3 plane MIP and/or 3D reconstructions were produced. All CT scans at this location are p erformed using CT dose reduction for ALARA by means of automated exposure control. COMPARISON: None available. FINDINGS: PULMONARY ARTERIES: No pulmonary emboli. THORACIC AORTA: No significant abnormality. HEART: No significant abnormality. Mild coronary artery calcifications CORONARY ARTERIES: No significant calcification. PLEURA: Pleural thickening on the right No pleural effusion. No pneumothorax. LYMPH NODES: No significant adenopathy. LUNGS: Minimum patchy parenchymal changes present posterior aspect right upper lobe ADDITIONAL FINDINGS: None. UPPER ABDOMEN: No acute findings. SKELETAL STRUCTURES: No significant osseous abnormality. IMPRESSION: 1. No CT evidence for pulmonary embolism. 2. Minimum patchy parenchymal changes posterior aspect right upper lobe, questionable inflammatory pr ocess. Signer Name: Parveen Villa MD Signed: 09/06/2019 7:52 PM Workstation Name: [id number]
[2019-09-07 05:57] LABS: BUN/Creatinine Ratio 12; Blood Urea Nitrogen 12 mg/dL (9-20); Calcium 9.3 mg/dL (8.4-10.2); Hemolysis Index 35
[2019-09-07] MEDS: FUROSEMIDE 40 MG/4 ML INJ IV SCH ×2 (06:04→20:20)
[2019-09-07] MEDS: NITROGLYCERIN 2% OINT 1 GM TP SCH ×4 (06:05→20:12)
--- NOTE | 2019-09-07 08:05 | Event Note ---
Date: 09/07/19 [id number]
[2019-09-07] MEDS ORDERED: ASPIRIN 325 MG TAB ONE (09:03)
[2019-09-07] MEDS: ASPIRIN 325 MG TAB PO SCH (09:04)
[2019-09-07] MEDS ORDERED: SODIUM CHLORIDE 0.9% 500 ML 500 ML ONE (09:07)
[2019-09-07] MEDS ORDERED: HEPARIN/NS 5000 UNIT/500ML 1,000 ML IR ONE (09:39)
[2019-09-07] MEDS: MIDAZOLAM 2 MG/2 ML INJ ONE ×2 (09:58→10:42)
[2019-09-07] MEDS: fentaNYL 100 MCG/2 ML INJ ONE ×2 (09:58→10:42)
[2019-09-07] MEDS: VERAPAMIL 5 MG/2 ML INJ ONE ×2 (09:59→10:46)
[2019-09-07] MEDS: HEPARIN 10,000 UNITS/10 ML VIAL ONE ×2 (09:59→10:46)
[2019-09-07] MEDS: LIDOCAINE (2%) 20 MG/1 ML VIAL 20 ML MDV INFILTRATI ONE ×2 (09:59→10:45)
[2019-09-07] MEDS ORDERED: SODIUM CHLORIDE 0.9% 500 ML 500 ML IV SCH (10:00)
[2019-09-07] MEDS: NITROGLYCERIN SYRINGE 3 ML ONE ×2 (10:00→10:46)
--- NOTE | 2019-09-07 10:51 | Progress Note ---
Assessment and Plan Assessment and plan: 69-year-old manWith no previous medical history who presents to the hospital with chest pain. Which was associated with shortness of breath, increased abdominal girth, and orthopnea NSTEMI elevated d dimer, and peak trop 0.5, n CTA and LE duplex neg for VTE cath shows LAD lesion not ammenable to stenting/angioplasty -Currently on heparin drip, management per cardiology. acute systolic CHF EF 25% optimize meds, cont diuretics Tobacco abuse/dependence Smoking cessation counseling performed for 10 minutes, nicotine patches when necessary Polycythemia Most likely due to tobacco abuse, hematology consult DVT prophylaxis; patient is fully anticoagulated at the moment. Dispo; need to be transferred to higher level institution where he can be evaluated by CT surgery History Interval history: Review of systems Constitutional: No fevers, no malaise, no joint pains CVS: Cp has now resolved, c/o orthopnea GI: No abdominal pain, no diarrhea, no vomiting, no constipation Respiratory: no wheezing, no coughing Hospitalist Physical - Physical exam Narrative exam: General.: Appears well, no distress, nontoxic HEENT: Moist mucous membranes, extraocular muscles intact, no lymphadenopathy Neck: supple Cardiac: S1-S2 heard Lungs: Bibasilar crackles Abdomen: soft , nontender, mildy distended, bowel sounds positive Extremities: no edema clubbing or cyanosis Skin: no rash or lesions Neurologic: no gross focal deficits Psych: calm, and cooperative - Constitutional Vitals: Temp Pulse Resp BP Pulse Ox 98.8 F 80 18 118/70 88 09/07/19 07:34 09/07/19 07:34 09/07/19 07:34 09/07/19 07:34 09/07/19 07:34 General appearance: Present: mild distress, well-nourished Results - Labs CBC & Chem 7: 09/08/19 03:10 09/07/19 05:01 Labs: Laboratory Last Values WBC 8.2 K/mm3 (4.5-11.0) 09/06/19 07:05 RBC 5.27 M/mm3 (3.65-5.03) H 09/06/19 07:05 Hgb 16.9 gm/dl (11.8-15.2) H 09/06/19 13:51 Hct 49.2 % (35.5-45.6) H 09/06/19 13:51 MCV 95 fl (84-94) H 09/06/19 07:05 MCH 32 pg (28-32) 09/06/19 07:05 MCHC 34 % (32-34) 09/06/19 07:05 RDW 13.1 % (13.2-15.2) L 09/06/19 07:05 Plt Count 140 K/mm3 (140-440) 09/06/19 13:51 Lymph % (Auto) 9.7 % (13.4-35.0) L 09/06/19 07:05 [place] % (Auto) 8.3 % (0.0-7.3) H 09/06/19 07:05 Eos % (Auto) 3.6 % (0.0-4.3) 09/06/19 07:05 Baso % (Auto) 1.0 % (0.0-1.8) 09/06/19 07:05 Lymph # 0.8 K/mm3 (1.2-5.4) L 09/06/19 07:05 [place] # 0.7 K/mm3 (0.0-0.8) 09/06/19 07:05 Eos # 0.3 K/mm3 (0.0-0.4) 09/06/19 07:05 Baso # 0.1 K/mm3 (0.0-0.1) 09/06/19 07:05 Seg Neutrophils % 77.4 % (40.0-70.0) H 09/06/19 07:05 Seg Neutrophils # 6.4 K/mm3 (1.8-7.7) 09/06/19 07:05 PT 14.1 Sec. (12.2-14.9) 09/06/19 13:51 INR 1.10 (0.87-1.13) 09/06/19 13:51 APTT 35.7 Sec. (24.2-36.6) 09/06/19 13:51 D-Dimer 1584.56 ng/mlDDU (0-234) H 09/05/19 10:52 Heparin Anti-Xa Level 0.28 U.I./ml (0.3-0.7) L 09/07/19 05:01 Sodium 139 mmol/L (137-145) 09/07/19 05:01 Potassium 4.1 mmol/L (3.6-5.0) 09/07/19 05:01 Chloride 101.0 mmol/L (98-107) 09/07/19 05:01 Carbon Dioxide 25 mmol/L (22-30) 09/07/19 05:01 Anion Gap 17 mmol/L 09/07/19 05:01 BUN 12 mg/dL (9-20) 09/07/19 05:01 Creatinine 1.0 mg/dL (0.8-1.5) 09/07/19 05:01 Estimated GFR > 60 ml/min 09/07/19 05:01 BUN/Creatinine Ratio 12 % 09/07/19 05:01 Glucose 112 mg/dL (75-100) H 09/07/19 05:01 POC Glucose 108 (70-105) H 09/05/19 20:39 Calcium 9.3 mg/dL (8.4-10.2) 09/07/19 05:01 Total Bilirubin 1.40 mg/dL (0.1-1.2) H 09/06/19 07:05 AST 39 units/L (5-40) 09/06/19 07:05 ALT 12 units/L (7-56) 09/06/19 07:05 Alkaline Phosphatase 81 units/L (35-129) 09/06/19 07:05 Troponin T 0.647 ng/mL (0.00-0.029) H* D 09/05/19 23:52 NT-Pro-B Natriuret Pep 3804 pg/mL (0-900) H 09/05/19 10:52 Total Protein 6.9 g/dL (6.3-8.2) 09/06/19 07:05 Albumin 3.9 g/dL (3.9-5) 09/06/19 07:05 Albumin/Globulin Ratio 1.3 % 09/06/19 07:05 Triglycerides 95 mg/dL (2-149) 09/05/19 10:52 Cholesterol 173 mg/dL (50-199) 09/05/19 10:52 LDL Cholesterol Direct 128 mg/dL (50-130) 09/05/19 10:52 HDL Cholesterol 37 mg/dL (40-59) L 09/05/19 10:52 Cholesterol/HDL Ratio 4.67 % 09/05/19 10:52 Active Medications - Current Medications Current Medications: Generic Name Dose Route Start Last Admin Trade Name Freq PRN Reason Stop Dose Admin Acetaminophen 650 mg 09/05/19 12:38 Tylenol PO Q4H PRN Pain MILD(1-3)/Fever >100.5/LUJAN Acetaminophen/Hydrocodone Bitart 1 each 09/05/19 17:29 09/05/19 19:28 [place] 7.5/325 PO 1 each Q4H PRN Administration Pain, Moderate (4-6) Aspirin 325 mg 09/06/19 10:00 09/07/19 09:04 Aspirin PO 325 mg QDAY [place] Administration Atorvastatin Calcium 40 mg 09/06/19 22:00 09/06/19 21:44 Lipitor PO 40 mg QHS [place] Administration Furosemide 40 mg 09/05/19 18:00 09/07/19 06:04 Lasix IV 40 mg 0600,1800 [place] Administration Gabapentin 400 mg 09/05/19 14:00 09/06/19 21:45 Gabapentin PO 400 mg QID [place] Administration Hydroxyzine HCl 50 mg 09/05/19 12:49 09/05/19 22:03 Atarax PO 50 mg Q6H PRN Administration Anxiety Heparin Sodium/Sodium Chloride 25,000 unit in 500 mls @ 20 mls/hr 09/06/19 12:00 09/07/19 06:07 Heparin/ 0.45% Nacl-25,000 Unit/500 Ml IV 1,250 units/hr TITRATE [place] 25 mls/hr Titration Protocol 1,000 UNITS/HR Sodium Chloride 500 mls @ 50 mls/hr 09/07/19 10:00 09/07/19 09:33 Nacl 0.9% 500 Ml IV 50 mls/hr DIRECT [place] Administration Metoprolol Succinate 25 mg 09/06/19 12:00 09/06/19 14:43 Metoprolol Xl PO 25 mg QDAY [place] Administration Nicotine 14 mg 09/06/19 13:00 09/06/19 14:35 Habitrol TD 14 mg QDAY [place] Administration Nitroglycerin 1 inch 09/05/19 18:00 09/07/19 06:05 Nitro-Bid 2% TP 1 inch QIDNTG [place] Administration Protocol Ondansetron HCl 4 mg 09/05/19 12:38 Zofran IV Q8H PRN Nausea And Vomiting Potassium Chloride 20 meq 09/06/19 10:00 09/06/19 14:44 K-Dur PO 20 meq QDAY [place] Administration Sodium Chloride 10 ml 09/05/19 22:00 09/06/19 21:45 Sodium Chloride Flush Syringe 10 Ml IV 10 ml BID [place] Administration Sodium Chloride 10 ml 09/05/19 12:38 Sodium Chloride Flush Syringe 10 Ml IV PRN PRN LINE FLUSH
--- NOTE | 2019-09-07 11:18 | Event Note ---
Date: 09/07/19 Cardiac catheterization was completed via the right radial approach, no complications. We found: A severe, global, dilated cardiomyopathy, left ventricle ejection fraction less than or equal to 15%. Single-vessel disease with a greater than 99% stenosis of the LAD at its ostium, not suitable for percutaneous intervention. The patient will be recommended for CT surgical assessment and myocardial viability assessment.
--- NOTE | 2019-09-07 11:18 | Cardiac Catherization Report ---
CARDIAC CATHETERIZATION REPORT REASON FOR PROCEDURE: The patient is a 69-year-old man who presented with symptoms of acute congestive heart failure. There was also a mild elevation in his troponin levels consistent with a possible non-ST elevation myocardial infarction. After treatment of the heart failure exacerbation, he was recommended for a cardiac catheterization. PROCEDURES: 1. Left heart catheterization. 2. Selective left and right coronary angiography. 3. Left ventricular angiography. 4. Sedation time, start 10:42, end 10:58. The patient was prepped and draped in a sterile fashion after informed consent. The right radial cath site was prepped and draped after a negative Chaitanya's test. The right radial artery was entered using Seldinger technique followed by placement of a 6-[place] hydrophilic sheath. Routine radial cocktail was administered via the sheath. Selective left and right coronary angiography was performed using a #3.5 left Zev, and a #4 right Zev. Pigtail catheter was used for left ventricular angiography. The catheters were then removed, sheath removed, and hemostasis achieved using a TR band. The patient was returned to the postprocedure unit in stable condition. There were no complications. FINDINGS: HEMODYNAMICS: Left ventricular end-diastolic pressure was 34, following coronary angiography. Ascending aortic pressure was 133/83. There was no significant pressure gradient on pullback across the aortic valve. CORONARY ANGIOGRAPHY: The left main coronary artery contained a distal narrowing, of 20-30%. The LAD contained a greater than 99% stenosis, in its proximal segment, extending from its ostium. Following that, there was diffuse moderate atherosclerosis of the mid LAD. A medium sized ramus intermedius artery contained a 50-70% stenosis of its mid segment. The circumflex artery and its obtuse marginal branches were free of significant disease. The right coronary artery was dominant. This vessel contained diffuse mild atherosclerosis of its mid segment, with a focal up to 30-50% narrowing. The left ventricle was severely dilated. There was severe left ventricular systolic dysfunction with diffuse hypokinesis in all segments. The left ventricular ejection fraction was less than or equal to 15%. CONCLUSIONS: 1. Critical disease of the proximal LAD extending from its ostium. The lesion location extending from the origin of the LAD is not suitable for percutaneous coronary intervention. 2. Severe dilated cardiomyopathy, severe global left ventricular systolic dysfunction. The severity of the left ventricular dysfunction is disproportionate to the single vessel stenosis of the LAD. RECOMMENDATION: The patient will be recommended for CT surgical assessment. He would likely benefit from a left internal mammary artery graft to the LAD after a myocardial viability assessment. JOB# [id number] CA/NTS
--- NOTE | 2019-09-07 11:45 | Discharge Summary ---
Providers - Providers Date of Admission: 09/05/19 12:38 Attending physician: DENISE SY MD 09/05/19 Consult to Cardiac Rehabilitation [CONS] Routine Reason For Exam: Phase I 09/05/19 12:38 Consult to Physician [CONS] Routine Comment: Consulting Provider: JOEY BELLO Physician Instructions: Reason For Exam: chf/nstemi 09/06/19 12:20 Consult to Physician [CONS] Routine Comment: Consulting Provider: GURDEEP PLEITEZ Physician Instructions: Reason For Exam: polycythemia 09/07/19 11:21 Consult to Cardiac Rehabilitation [CONS] Routine Reason For Exam: Cardiac Rehab Evaluation [facility] Condition: Stable Hospital course: 69-year-old manWith no previous medical history who presents to the hospital with chest pain. Which was associated with shortness of breath, increased abdominal girth, and orthopnea NSTEMI elevated d dimer, and peak trop 0.5, n CTA and LE duplex neg for VTE cath shows LAD lesion not ammenable to stenting/angioplasty and therefore he was transferred to higher level hospital where he can be seen by CT surgery. -Currently on heparin drip, management per cardiology. acute systolic CHF EF 25% optimize meds, cont diuretics Tobacco abuse/dependence Smoking cessation counseling performed for 10 minutes, nicotine patches when necessary Polycythemia Most likely due to tobacco abuse, hematology consult appreciated DVT prophylaxis; patient is fully anticoagulated at the moment. Disposition: DC/TX- [facility] IP Time spent for discharge: 33 mins Core Measure Documentation - Palliative Care Palliative Care/ Comfort Measures: Not Applicable - Core Measures Any of the following diagnoses?: acute DE - Acute DE Discharge Requirements Aspirin at discharge: Yes THERON/ARB for LVSD if EF <40%: Yes Beta flores at discharge: Yes Statin for LDL = or >100 mg/dl on DC: Yes Exam - Constitutional Vitals: Temp Pulse Resp BP Pulse Ox 98.8 F 80 18 118/70 88 09/07/19 07:34 09/07/19 07:34 09/07/19 07:34 09/07/19 07:34 09/07/19 07:34 General appearance: Present: no acute distress, well-nourished - EENT Eyes: Present: PERRL ENT: hearing intact, clear oral mucosa - Neck Neck: Present: supple, normal ROM - Respiratory Respiratory effort: normal Respiratory: bilateral: CTA - Cardiovascular Heart Sounds: Present: S1 & S2. Absent: rub, click - Extremities Extremities: pulses symmetrical, No edema Peripheral Pulses: within normal limits - Abdominal General gastrointestinal: Present: soft, non-tender, non-distended, normal bowel sounds Male genitourinary: Present: normal - Integumentary Integumentary: Present: clear, warm, dry - Musculoskeletal Musculoskeletal: gait normal, strength equal bilaterally - Psychiatric Psychiatric: appropriate mood/affect, intact judgment & insight - Neurologic Neurologic: CNII-XII intact, moves all extremities Plan Follow up with: BRY SHEPPARD MD [Primary Care Provider] - 7 Days
[2019-09-07] MEDS ORDERED: SODIUM CHLORIDE 0.9% 1000 ML 1,000 ML IV SCH (12:00)
[2019-09-07] MEDS: GABAPENTIN 400 MG CAP PO SCH ×5 (13:05→22:30)
[2019-09-07] MEDS: METOPROLOL SUCCINATE XL 25 MG TAB PO SCH (14:38)
[2019-09-07] MEDS: LISINOPRIL 5 MG TAB PO SCH (14:40)
[2019-09-07] MEDS: NICOTINE 14 MG/24 HR PATCH TD SCH (15:36)
[2019-09-07] MEDS: carvediloL 3.125 MG TAB PO SCH ×2 (20:10→22:33)
[2019-09-07] MEDS: HEPARIN/ 0.45% NACL DRIP 25,000 UNIT/500 ML BAG IV SCH (22:33)
[2019-09-07] MEDS: hydrOXYzine HCL 25 MG TAB PO PRN (22:37)
--- NOTE | 2019-09-08 03:04 | Consultation ---
REFERRED BY: Dr. Hudson. REASON FOR CONSULTATION: Polycythemia. HISTORY OF PRESENT ILLNESS: I saw the patient, a 69-year-old male in the medical floor. The patient came to the hospital because of shortness of breath and chest pain. Cardiology team has been consulted the patient as the hemoglobin and hematocrit was high, I have been asked to evaluate the patient. The patient has a history of smoking. He says he has quit the same 2 days ago. No vomiting, no diarrhea, no hematemesis, no hematochezia, no fever. No seizure, syncope, no loss of consciousness. PAST SURGICAL HISTORY: Neck surgery. SOCIAL HISTORY: , lives with family members. The patient states he has stopped smoking after this admission. FAMILY HISTORY: Noncontributory. ALLERGIES: PERCOCET. PHYSICAL EXAMINATION: VITAL SIGNS: Temperature 98, pulse 77, respirations 18, BP 88/46 and then 130/78. HEENT: No icterus. NECK: No neck lymph nodes. HEART: S1, S2. LUNGS: Decreased air entry in the bases. ABDOMEN: Soft. EXTREMITIES: No calf tenderness. NEUROLOGIC: Alert, awake, oriented. LABORATORY DATA: White cell 8, hemoglobin 16.9, hematocrit 50, platelets 141, potassium 4.1, creatinine 1, calcium 9.3, bilirubin 1.4. ASSESSMENT AND PLAN: 1. High hemoglobin and hematocrit, polycythemia. This may be secondary in view of history of smoking present. We will see the patient in the outpatient setting ____, if this is secondary polycythemia. There is no immediate need for phlebotomy. 2. Chest x-ray shows possible heart failure. 3. CTA chest and leg Doppler was negative for deep venous thrombosis and pulmonary embolism. 4. Non-ST elevation myocardial infarction. 5. I will follow the patient during inpatient stay and then in the clinic setting. The patient claims to have stopped smoking. JOB# [id number] NM/NTS
[2019-09-08] MEDS: FUROSEMIDE 40 MG/4 ML INJ IV SCH ×2 (07:59→18:51)
--- NOTE | 2019-09-08 08:08 | Hem/Onc Progress Note ---
Assessment and Plan 1. High hemoglobin and hematocrit, polycythemia. This may be secondary in view of history of smoking present. We will see the patient in the outpatient setting, if this is secondary polycythemia. There is no immediate need for phlebotomy. 2. Chest x-ray shows possible heart failure. 3. CTA chest and leg Doppler was negative for deep venous thrombosis and pulmonary embolism. 4. Non-ST elevation myocardial infarction. 5. I will follow the patient during inpatient stay and then in the clinic setting. The patient claims to have stopped smoking. As per pt - he will transferred outside - greig CT sx - Patient Problems (1) Polycythemia Current Visit: Yes Status: Acute Subjective Date of service: 09/08/19 Principal diagnosis: polycythemia Interval history: still sob Objective - Exam Narrative Exam: pain - n/a General appearance - awake Performance status limited self care Eyes - no icterus ENT - no thrush LNs cervical not palpable Neck - no LN Respiratory Normal Breath sounds - CTA anteriorly CVS S1 S2 + Extremities no edema General GI Soft Rectal deferred male - deferred Skin warm Musculoskeletal - moving limbs Neurologically awake - Constitutional Vitals: Last Vital Signs Temp 97.4 F L 09/08/19 07:49 Pulse 77 09/08/19 03:37 Resp 18 09/08/19 07:49 BP 108/61 09/08/19 07:49 Pulse Ox 89 09/08/19 03:37 - Labs Lab Results: Laboratory Results - last 24 hr 09/07/19 09/07/19 09/08/19 12:22 13:08 03:10 Hgb 16.0 H Hct 47.0 H Plt Count 133 L Heparin Anti-Xa Level < 0.10 L POC Glucose 104 09/08/19 05:35 Hgb Hct Plt Count Heparin Anti-Xa Level 0.13 L POC Glucose Medications & Allergies - Medications Allergies/Adverse Reactions: Allergies oxycodone [From Percocet] Allergy (Mild, Verified 09/08/19 08:53) Itching Home Medications: Home Medications Medication Instructions Recorded Confirmed Last Taken Type Gabapentin [Neurontin] 400 mg PO QID 09/05/19 09/05/19 Unknown History HYDROcodone/APAP 5-325 [[place] 1 each PO Q4HR PRN 09/05/19 09/05/19 3 Weeks Ago History 5/325] ~08/15/19 Hydroxyzine HCl [hydrOXYzine] 50 mg PO QID PRN 09/05/19 09/05/19 Unknown History tiZANidine [Zanaflex 4mg TAB] 8 mg PO Q8H 09/05/19 09/05/19 Unknown History Active Medications: Generic Name Dose Route Start Last Admin Trade Name Freq PRN Reason Stop Dose Admin Acetaminophen 650 mg 09/05/19 12:38 Tylenol PO Q4H PRN Pain MILD(1-3)/Fever >100.5/LUJAN Acetaminophen/Hydrocodone Bitart 1 each 09/05/19 17:29 09/05/19 19:28 [place] 7.5/325 PO 1 each Q4H PRN Administration Pain, Moderate (4-6) Aspirin 325 mg 09/06/19 10:00 09/07/19 09:04 Aspirin PO 325 mg QDAY [facility] Administration Atorvastatin Calcium 40 mg 09/06/19 22:00 09/07/19 22:30 Lipitor PO 40 mg QHS [facility] Administration Carvedilol 3.125 mg 09/07/19 12:00 09/07/19 22:33 Coreg PO Not Given BID [facility] Furosemide 40 mg 09/05/19 18:00 09/08/19 07:59 Lasix IV 40 mg 0600,1800 [facility] Administration Gabapentin 400 mg 09/05/19 14:00 09/07/19 22:30 Gabapentin PO 400 mg QID [facility] Administration Hydroxyzine HCl 50 mg 09/05/19 12:49 09/07/19 22:37 Atarax PO 50 mg Q6H PRN Administration Anxiety Sodium Chloride 500 mls @ 50 mls/hr 09/07/19 10:00 09/07/19 09:33 Nacl 0.9% 500 Ml IV 50 mls/hr DIRECT [facility] Administration Heparin Sodium/Sodium Chloride 25,000 unit in 500 mls @ 20 mls/hr 09/07/19 12:00 09/07/19 22:33 Heparin/ 0.45% Nacl-25,000 Unit/500 Ml IV 1,000 units/hr TITRATE [place] 20 mls/hr Administration Protocol 1,000 UNITS/HR Lisinopril 5 mg 09/07/19 13:00 09/07/19 14:40 Zestril PO 5 mg QDAY [place] Administration Metoprolol Succinate 25 mg 09/06/19 12:00 09/07/19 14:38 Metoprolol Xl PO Not Given QDAY [facility] Nicotine 14 mg 09/06/19 13:00 09/07/19 15:36 Habitrol TD 14 mg QDAY [facility] Administration Nitroglycerin 1 inch 09/05/19 18:00 09/07/19 20:12 Nitro-Bid 2% TP Not Given QIDNTG [facility] Protocol Ondansetron HCl 4 mg 09/05/19 12:38 Zofran IV Q8H PRN Nausea And Vomiting Sodium Chloride 10 ml 09/05/19 22:00 09/07/19 22:36 Sodium Chloride Flush Syringe 10 Ml IV 10 ml BID [place] Administration Sodium Chloride 10 ml 09/05/19 12:38 Sodium Chloride Flush Syringe 10 Ml IV PRN PRN LINE FLUSH
[2019-09-08] MEDS: NITROGLYCERIN 2% OINT 1 GM TP SCH ×4 (08:48→18:48)
[2019-09-08] MEDS: ASPIRIN 325 MG TAB PO SCH (09:40)
[2019-09-08] MEDS: GABAPENTIN 400 MG CAP PO SCH ×4 (09:40→21:40)
[2019-09-08] MEDS: carvediloL 3.125 MG TAB PO SCH ×2 (09:44→21:43)
[2019-09-08] MEDS: NICOTINE 14 MG/24 HR PATCH TD SCH (09:45)
[2019-09-08] MEDS: LISINOPRIL 5 MG TAB PO SCH (09:46)
[2019-09-08] MEDS: METOPROLOL SUCCINATE XL 25 MG TAB PO SCH (09:46)
[2019-09-08 10:56] LABS: ABG Base Excess 1.1 mmol/L (-2.0-3.0); ABG HCO3 25.7 mmol/L (20.0-26.0); ABG Methemoglobin 0.6 % (0.0-1.5); ABG Oxygen Saturation 96.5 % (95.0-99.0); ABG PCO2 40.7 mm Hg; ABG PH 7.417 pH Units (7.350-7.450); ABG PO2 80.1 mm Hg (80.0-90.0)
--- NOTE | 2019-09-08 11:28 | Progress Note ---
Assessment and Plan Acute CHF exacerbation NSTEMI [facility]: Single-vessel disease with a greater than 99% stenosis of the LAD at its ostium, not suitable for percutaneous intervention. Left ventricle ejection fraction less than or equal to 15%. Tobacco abuse Patient awaits transfer to [place] for CT surgical assessment. Continue medical therapy for predominately nonischemic cardiomyopathy and coronary artery disease. We will hold nitrates due to hypotension Subjective Date of service: 09/08/19 Interval history: Awaits transfer to [place]. Patient is sitting up in bed. He complains of headaches. Systolic blood pressure is 77. Noted nitro-bid ointment to right upper chest. Family member is at bedside. Objective Vital Signs Temp Pulse Resp BP Pulse Ox 09/08/19 09:50 76 73/52 93 09/08/19 09:49 61 77/46 09/08/19 09:46 61 77/46 09/08/19 09:44 61 77/46 09/08/19 09:36 97.5 F L 15 77/46 09/08/19 07:49 97.4 F L 18 108/61 09/08/19 03:37 98.1 F 77 16 104/59 89 09/08/19 01:00 72 09/07/19 23:02 98.0 F 66 20 94/54 93 09/07/19 22:33 71 93/54 09/07/19 20:49 92 09/07/19 19:45 98.6 F 78 20 90/51 89 09/07/19 15:34 98.1 F 88 20 139/77 92 09/07/19 12:18 97.9 F 91 H 20 134/96 95 - Physical Examination General: No Apparent Distress HEENT: Positive: PERRL Neck: Positive: trachea midline Cardiac: Positive: Reg Rate and Rhythm Lungs: Positive: Decreased Breath Sounds Neuro: Positive: Grossly Intact Extremities: Absent: edema - Labs and Meds CBC 09/08/19 Range/Units 03:10 Hgb 16.0 H (11.8-15.2) gm/dl Hct 47.0 H (35.5-45.6) % Plt Count 133 L (140-440) K/mm3
--- NOTE | 2019-09-08 13:51 | Progress Note ---
Assessment and Plan Assessment and plan: 69-year-old manWith no previous medical history who presents to the hospital with chest pain. Which was associated with shortness of breath, increased abdominal girth, and orthopnea NSTEMI elevated d dimer, and peak trop 0.5, n CTA and LE duplex neg for VTE cath shows LAD lesion not ammenable to stenting/angioplasty, awaiting transfer to higher level hospital where he can be evaluated by CT surgery -Currently on heparin drip, management per cardiology. acute systolic CHF EF 25% optimize meds, cont diuretics Tobacco abuse/dependence Smoking cessation counseling performed for 10 minutes, nicotine patches when necessary Polycythemia Most likely due to tobacco abuse, hematology consult DVT prophylaxis; patient is fully anticoagulated at the moment. Dispo; need to be transferred to higher level institution where he can be evaluated by CT surgery History Interval history: Review of systems Constitutional: No fevers, no malaise, no joint pains CVS: Cp has now resolved, c/o orthopnea GI: No abdominal pain, no diarrhea, no vomiting, no constipation Respiratory: no wheezing, no coughing Hospitalist Physical - Physical exam Narrative exam: General.: Appears well, no distress, nontoxic HEENT: Moist mucous membranes, extraocular muscles intact, no lymphadenopathy Neck: supple Cardiac: S1-S2 heard Lungs: Bibasilar crackles Abdomen: soft , nontender, mildy distended, bowel sounds positive Extremities: no edema clubbing or cyanosis Skin: no rash or lesions Neurologic: no gross focal deficits Psych: calm, and cooperative - Constitutional Vitals: Temp Pulse Resp BP Pulse Ox 97.5 F L 76 15 73/52 93 09/08/19 09:36 09/08/19 09:50 09/08/19 09:36 09/08/19 09:50 09/08/19 09:50 General appearance: Present: no acute distress, well-nourished Results - Labs CBC & Chem 7: 09/08/19 03:10 09/07/19 05:01 Labs: Laboratory Last Values WBC 8.2 K/mm3 (4.5-11.0) 09/06/19 07:05 RBC 5.27 M/mm3 (3.65-5.03) H 09/06/19 07:05 Hgb 16.0 gm/dl (11.8-15.2) H 09/08/19 03:10 Hct 47.0 % (35.5-45.6) H 09/08/19 03:10 MCV 95 fl (84-94) H 09/06/19 07:05 MCH 32 pg (28-32) 09/06/19 07:05 MCHC 34 % (32-34) 09/06/19 07:05 RDW 13.1 % (13.2-15.2) L 09/06/19 07:05 Plt Count 133 K/mm3 (140-440) L 09/08/19 03:10 Lymph % (Auto) 9.7 % (13.4-35.0) L 09/06/19 07:05 [place] % (Auto) 8.3 % (0.0-7.3) H 09/06/19 07:05 Eos % (Auto) 3.6 % (0.0-4.3) 09/06/19 07:05 Baso % (Auto) 1.0 % (0.0-1.8) 09/06/19 07:05 Lymph # 0.8 K/mm3 (1.2-5.4) L 09/06/19 07:05 [place] # 0.7 K/mm3 (0.0-0.8) 09/06/19 07:05 Eos # 0.3 K/mm3 (0.0-0.4) 09/06/19 07:05 Baso # 0.1 K/mm3 (0.0-0.1) 09/06/19 07:05 Seg Neutrophils % 77.4 % (40.0-70.0) H 09/06/19 07:05 Seg Neutrophils # 6.4 K/mm3 (1.8-7.7) 09/06/19 07:05 PT 14.1 Sec. (12.2-14.9) 09/06/19 13:51 INR 1.10 (0.87-1.13) 09/06/19 13:51 APTT 35.7 Sec. (24.2-36.6) 09/06/19 13:51 D-Dimer 1584.56 ng/mlDDU (0-234) H 09/05/19 10:52 Heparin Anti-Xa Level 0.13 U.I./ml (0.3-0.7) L 09/08/19 05:35 ABG pH 7.417 pH Units (7.350-7.450) 09/08/19 10:46 ABG pCO2 40.7 mm Hg 09/08/19 10:46 ABG pO2 80.1 mm Hg (80.0-90.0) 09/08/19 10:46 ABG HCO3 25.7 mmol/L (20.0-26.0) 09/08/19 10:46 ABG O2 Saturation 96.5 % (95.0-99.0) 09/08/19 10:46 ABG O2 Content 21.5 (0.0-44) 09/08/19 10:46 ABG Base Excess 1.1 mmol/L (-2.0-3.0) 09/08/19 10:46 ABG Hemoglobin 16.2 gm/dl (14.0-18.0) 09/08/19 10:46 ABG Carboxyhemoglobin 1.7 % (0.0-5.0) 09/08/19 10:46 ABG Methemoglobin 0.6 % (0.0-1.5) 09/08/19 10:46 Oxyhemoglobin 94.3 % (95.0-99.0) L 09/08/19 10:46 FiO2 21 % 09/08/19 10:46 Sodium 139 mmol/L (137-145) 09/07/19 05:01 Potassium 4.1 mmol/L (3.6-5.0) 09/07/19 05:01 Chloride 101.0 mmol/L (98-107) 09/07/19 05:01 Carbon Dioxide 25 mmol/L (22-30) 09/07/19 05:01 Anion Gap 17 mmol/L 09/07/19 05:01 BUN 12 mg/dL (9-20) 09/07/19 05:01 Creatinine 1.0 mg/dL (0.8-1.5) 09/07/19 05:01 Estimated GFR > 60 ml/min 09/07/19 05:01 BUN/Creatinine Ratio 12 % 09/07/19 05:01 Glucose 112 mg/dL (75-100) H 09/07/19 05:01 POC Glucose 104 (70-105) 09/07/19 13:08 Calcium 9.3 mg/dL (8.4-10.2) 09/07/19 05:01 Total Bilirubin 1.40 mg/dL (0.1-1.2) H 09/06/19 07:05 AST 39 units/L (5-40) 09/06/19 07:05 ALT 12 units/L (7-56) 09/06/19 07:05 Alkaline Phosphatase 81 units/L (35-129) 09/06/19 07:05 Troponin T 0.647 ng/mL (0.00-0.029) H* D 09/05/19 23:52 NT-Pro-B Natriuret Pep 3804 pg/mL (0-900) H 09/05/19 10:52 Total Protein 6.9 g/dL (6.3-8.2) 09/06/19 07:05 Albumin 3.9 g/dL (3.9-5) 09/06/19 07:05 Albumin/Globulin Ratio 1.3 % 09/06/19 07:05 Triglycerides 95 mg/dL (2-149) 09/05/19 10:52 Cholesterol 173 mg/dL (50-199) 09/05/19 10:52 LDL Cholesterol Direct 128 mg/dL (50-130) 09/05/19 10:52 HDL Cholesterol 37 mg/dL (40-59) L 09/05/19 10:52 Cholesterol/HDL Ratio 4.67 % 09/05/19 10:52 Active Medications - Current Medications Current Medications: Generic Name Dose Route Start Last Admin Trade Name Freq PRN Reason Stop Dose Admin Acetaminophen 650 mg 09/05/19 12:38 Tylenol PO Q4H PRN Pain MILD(1-3)/Fever >100.5/LUJAN Acetaminophen/Hydrocodone Bitart 1 each 09/05/19 17:29 09/05/19 19:28 [place] 7.5/325 PO 1 each Q4H PRN Administration Pain, Moderate (4-6) Aspirin 325 mg 09/06/19 10:00 09/08/19 09:40 Aspirin PO 325 mg QDAY [facility] Administration Atorvastatin Calcium 40 mg 09/06/19 22:00 09/07/19 22:30 Lipitor PO 40 mg QHS [facility] Administration Carvedilol 3.125 mg 09/07/19 12:00 09/08/19 09:44 Coreg PO Not Given BID [place] Furosemide 40 mg 09/05/19 18:00 09/08/19 07:59 Lasix IV 40 mg 0600,1800 [place] Administration Gabapentin 400 mg 09/05/19 14:00 09/08/19 09:40 Gabapentin PO 400 mg QID [facility] Administration Hydroxyzine HCl 50 mg 09/05/19 12:49 09/07/19 22:37 Atarax PO 50 mg Q6H PRN Administration Anxiety Sodium Chloride 500 mls @ 50 mls/hr 09/07/19 10:00 09/07/19 09:33 Nacl 0.9% 500 Ml IV 50 mls/hr DIRECT [place] Administration Heparin Sodium/Sodium Chloride 25,000 unit in 500 mls @ 20 mls/hr 09/07/19 12:00 09/08/19 08:12 Heparin/ 0.45% Nacl-25,000 Unit/500 Ml IV 1,150 units/hr TITRATE [place] 23 mls/hr Titration Protocol 1,000 UNITS/HR Lisinopril 5 mg 09/07/19 13:00 09/08/19 09:46 Zestril PO Not Given QDAY [facility] Metoprolol Succinate 25 mg 09/06/19 12:00 09/08/19 09:46 Metoprolol Xl PO Not Given QDAY [facility] Nicotine 14 mg 09/06/19 13:00 09/08/19 09:45 Habitrol TD Not Given QDAY [facility] Nitroglycerin 1 inch 09/05/19 18:00 09/08/19 09:49 Nitro-Bid 2% TP Not Given QIDNTG [facility] Protocol Ondansetron HCl 4 mg 09/05/19 12:38 Zofran IV Q8H PRN Nausea And Vomiting Sodium Chloride 10 ml 09/05/19 22:00 09/07/19 22:36 Sodium Chloride Flush Syringe 10 Ml IV 10 ml BID [place] Administration Sodium Chloride 10 ml 09/05/19 12:38 Sodium Chloride Flush Syringe 10 Ml IV PRN PRN LINE FLUSH
[2019-09-08] MEDS: HEPARIN/ 0.45% NACL DRIP 25,000 UNIT/500 ML BAG IV SCH (20:06)
[2019-09-09 00:04] VITALS: BP 118/75
== END 2019-09-09 00:45 | disposition short-term general hospital (02) | DRG 280 ==
LOC: ED 09:57 → 4A 12:38
PROVIDERS: ADMIT Internal Medicine; ATTEND Internal Medicine
PROC: 4A023N7 Measurement of Cardiac Sampling and Pressure, Left Heart, Percutaneous Approach (ICD-10-PCS; principal; 2019-09-07)
PROC: B2111ZZ Fluoroscopy of Multiple Coronary Arteries using Low Osmolar Contrast (ICD-10-PCS; 2019-09-07)
PROC: B2151ZZ Fluoroscopy of Left Heart using Low Osmolar Contrast (ICD-10-PCS; 2019-09-07)
DX: I21.4 Non-ST elevation (NSTEMI) myocardial infarction (principal); I50.41 Acute combined systolic (congestive) and diastolic (congestive) heart failure; F17.213 Nicotine dependence, cigarettes, with withdrawal; I42.0 Dilated cardiomyopathy; D75.1 Secondary polycythemia; I25.10 Atherosclerotic heart disease of native coronary artery without angina pectoris; Z88.5 Allergy status to narcotic agent; Z88.8 Allergy status to other drugs, medicaments and biological substances; Z79.899 Other long term (current) drug therapy; Z71.6 Tobacco abuse counseling
CPT/HCPCS: 36415; 36600; 71046; 71275; 80048; 80053; 80061; 82803; 82962; 83880; 84484; 85014; 85018; 85025; 85049; 85379; 85520; 85610; 85730; 93005; 93010; 93306; 93458; 93970; 94640; 94760; 99406; G0378; A9270-GY; C1894; J1644; J1650; J1940; J2250; J3010; J7040; Q9967